=== PATIENT | female | born 1995 | race Caucasian/White ===

== ENCOUNTER 2018-11-02 14:59 | Outpatient (CLI) | payer MEDICAID ==
[~2018-11-02] VITALS: Ht 132.1 cm; Wt 62.3 kg
[2018-11-02 15:17] VITALS: Ht 132.1 cm; Wt 62.3 kg
[2018-11-02 15:18] VITALS: BP 108/68; PULSE 78; RESP 20
[2018-11-02] MEDS ORDERED: PREN-6 PO (15:21)
[2018-11-02] MEDS ORDERED: BETAMET NA PHOS/AC(6 MG/ML) 2 ML INJ SYG IM ONE (15:35)
--- NOTE | 2018-11-02 20:43 | PN ---
Triage Information Date/Time Reason for visit: Short cervix, present for betamethasone injection Weeks of Gestation 33 weeks and 2 days /Para G1 Diabetes: none Hypertention: none Objective Vital Signs Date Temp Pulse Resp B/P (MAP) Pulse Ox O2 O2 Flow FiO2 Time Delivery Rate 11/02/18 98.2 78 20 108/68 100 Room Air 15:18 (81) Heart Rate: 140's Contractions: None Results/Medications Imaging Results There is a single live intrauterine gestation. Cardiac activity is present with 140 beats per minute. There is a vertex presentation. The placenta is posterior. There is no evidence of placental abruption. There is an increased amount of amniotic fluid with an BLANK = 23.6 cm. Biophysical profile: movement 2/2 tone 2/2. breathing 2/2 BLANK 2/2 Total 05/18 RPTAT: AA . IMPRESSION: Normal biophysical profile. Polyhydramnios. . .Parvez Baird MD, MD Date Time Electronically viewed and signed by .Parvez Baird MD, MD on 11/02/2018 16:02 Disposition: Discharge Assessment/Plan 23 years old G1 at 33 weeks and 2 days with a DEBRA of 12/27/2018 with short cervix (1.6 cm) present for betamethasone injection. She states good movement. She denies nausea, vomiting, shortness of breath, chest pain, headache, visual changes, vaginal bleeding or LOF. heart rate is category 1. She has no uterine contraction. Ultrasound performed as noted above. She received 12 mg of betamethasone IM, will back tomorrow for receive a second dose. Sign and symptom of labor, preeclampsia, kick count discussed in detail with patient. She expressed understanding. All of her questions answered. I strongly recommend to have modified bedrest and avoid of sexual activity. She discharged home in stable condition with follow-up with her primary OB. OSMANY DUNLAP Nov 02, 2018 20:43
== END 2018-11-02 16:56 | disposition home or self-care (01) ==
LOC: L-D 14:59 → OBT 14:59
PROVIDERS: ATTEND Obstetrics & Gynecology
DX: O26.873 Cervical shortening, third trimester (principal); Z3A.33 33 weeks gestation of pregnancy
CPT/HCPCS: 76818; J0702; Z7500; G0463

== ENCOUNTER 2018-11-03 16:19 | Outpatient (CLI) | payer MEDICAID ==
[~2018-11-03] VITALS: Ht 154.9 cm; Wt 62.2 kg
[~2018-11-03 16:19] MED LIST: PREN-6 PO
[2018-11-03 16:33] VITALS: BP 113/75; PULSE 99; RESP 18; Ht 154.9 cm; Wt 62.2 kg
[2018-11-03] MEDS ORDERED: BETAMET NA PHOS/AC(6 MG/ML) 2 ML INJ SYG IM ONE (18:00)
--- NOTE | 2018-11-03 18:33 | PN ---
Triage Information Date/Time November 03, 2018 Reason for visit: Short cervix to receive the second dose of steroid Weeks of Gestation 33 weeks and 2 days /Para 1 para 0 Diabetes: none Hypertention: none Additional information 23-year-old with IUP at 33 weeks and 2 days with short cervix was seen yesterday and received first dose of steroid. she was then subsequently discharged in here today received a second dose of steroid. She denies any leaking of fluid, vaginal bleeding or decreased movement. Cervix was noted to be 1.6 cm. Objective Vital Signs Date Temp Pulse Resp B/P (MAP) Pulse Ox O2 O2 Flow FiO2 Time Delivery Rate 11/03/18 97.9 99 18 113/75 Room Air 16:33 (88) Exam GA: Alert and oriented x4 does not appear to be in any acute distress HEENT: Soft, gravid, size consistent with dates NST: Category 1 and appropriate for gestational age Some occasional irritability noted. Patient has not been feeling Cervical length: 1.9 cm which there is no change compared to prior. There is no evidence of funneling UA consistent with UTI Asymptomatic. Results/Medications Results 24 hrs Laboratory Tests Test 11/03/18 17:41 Urine Color YELLOW Urine Clarity SLIGHTLY CLOUDY A Urine pH 6.0 Urine Specific [place] 1.015 Urine Ketones 1+ H Urine Nitrite NEGATIVE Urine Bilirubin NEGATIVE Urine Urobilinogen 1+ H Urine Leukocyte Esterase 3+ H Urine Microscopic RBC 1 Urine Microscopic WBC 51 H Urine Squamous Epithelial Cells FEW Urine Hemoglobin NEGATIVE Urine Glucose NEGATIVE Urine Total Protein 1+ H Imaging Results Laboratory Tests Test 11/03/18 17:41 Urine Color YELLOW Urine Clarity SLIGHTLY CLOUDY Urine pH 6.0 Urine Specific [place] 1.015 Urine Ketones 1+ mg/dL Urine Nitrite NEGATIVE mg/dL Urine Bilirubin NEGATIVE mg/dL Urine Urobilinogen 1+ mg/dL Urine Leukocyte Esterase 3+ Gaby/ul Urine Microscopic RBC 1 /HPF Urine Microscopic WBC 51 /HPF Urine Squamous Epithelial Cells FEW /HPF Urine Hemoglobin NEGATIVE mg/dL Urine Glucose NEGATIVE mg/dL Urine Total Protein 1+ mg/dl PROCEDURE: US cervix CLINICAL INDICATION: A short cervix TECHNIQUE: Limited OB ultrasound was performed to evaluate the cervix COMPARISON: No prior studies are available for comparison. FINDINGS: There is a single live intrauterine . Normal cardiac activity is identified at a rate of 123 beats per minute. presentation is cephalic. Placenta is fundal grade 1. The cervix is closed with a length of 1.9 cm. No funneling of dilatation is identified. IMPRESSION: Cervix is closed with a length of 1.9 cm RPTAT: HH Disposition: Discharge Assessment/Plan IUP at 33 weeks and 2 days Short cervix History of labor no cervical change noted compared to prior exam No evidence of funneling Patient is asymptomatic Received second dose of steroid today Urine consistent with UTI. Asymptomatic. Treatment with Keflex 500 mg p.o. 4 times daily was given for 7 days I discussed with the patient about adequate hydration and follow-up within 48 hours after discharge from the hospital with primary OB office Strict labor precaution and kick counts and bedrest at home and pelvic rest discussed with the patient All questions were answered to patient's best satisfaction PENELOPE KIRKLAND MD Nov 03, 2018 18:33
--- NOTE | 2018-11-03 19:12 | TRIAGE ---
OB Triage Datetime Report Generated by CPN: 11/03/2018 19:11 Datetime: 11/03/2018 17:01 Labor Evaluation Frequency: none Monitor Mode: External Resting Tone [place]: Relaxed Heart Rate FHR Baseline Rate: 130 Monitor Mode: External US FHR Baseline Changes: No Baseline Change Variability: Moderate 6-25 bpm Accelerations: 15X15 Decelerations: None Category: Category I Datetime: 11/03/2018 16:41 Stage of : OB Triage Assessment Type: Triage Maternal Assessment Level of Consciousness: Fully Conscious DTR's/Clonus: DTRs 2+; No Clonus Headache: Denies Blurred Vision: No Respiratory Effort: Unlabored; Regular Rhythm; Equal Expansion Breath Sounds, Left: Clear and Equal Breath Sounds, Right: Clear and Equal Nausea/Vomiting: Denies RUQ Epigastric Pain: Denies Lower Extremities Edema: None Degree: None Upper Extremities Edema: None Degree: None Facial Edema: None Temperature Route: Oral Fall Risk Assessment History of Falling: (0) No Secondary Diagnosis: (0) No Ambulatory Aid: (0) Bedrest/Nurse Assist IV Therapy: (0) No Gait: (0) Normal/Bedrest/Immobile Mental Status: (0) Oriented to Own Ability Fall Score: 0 Fall Risk Score Definition: No Risk: No action required Labor Evaluation Frequency: none Monitor Mode: External Resting Tone [place]: Relaxed Heart Rate FHR Baseline Rate: 135 Monitor Mode: External US FHR Baseline Changes: No Baseline Change Variability: Moderate 6-25 bpm Accelerations: 15X15 Decelerations: None Category: Category I Pain Assessment Pain Scale: 0 Pain Presence: None/Denies Pain Type: N/A Datetime: 11/03/2018 16:40 Time of Arrival: 11/03/2018 16:16 EGA: 33.2 Arrived By: Ambulatory Arrived From: Home Chief Complaint: to receive second dose of celestone Movement: Present Contractions: Denies/Absent Rupture of Membranes: Denies Vaginal Bleeding: None Vaginal Discharge: Denies Recent Sexual Intercouse: Denies Abdominal Trauma: Not Applicable Patient Complaints: None Initial Plan: EFM, celestone second dose Datetime: 11/02/2018 16:41 Labor Evaluation Frequency: 2-5 Monitor Mode: External Duration (sec)2399: 50-60 Quality: Mild Pattern: Normal: <= 5 Contractions in 10 Minutes Resting Tone [place]: Relaxed Heart Rate FHR Baseline Rate: 135 Monitor Mode: External US Variability: Moderate 6-25 bpm Accelerations: 15X15 Decelerations: None Category: Category I Pain Presence: None/Denies Pain Type: N/A Datetime: 11/02/2018 16:07 Assessment Type: Triage Maternal Assessment Level of Consciousness: Fully Conscious DTR's/Clonus: DTRs 2+; No Clonus Headache: Denies Blurred Vision: No Respiratory Effort: Unlabored; Regular Rhythm; Equal Expansion Breath Sounds, Left: Clear and Equal Breath Sounds, Right: Clear and Equal Nausea/Vomiting: Denies RUQ Epigastric Pain: Denies Lower Extremities Edema: None Degree: None Upper Extremities Edema: None Degree: None Facial Edema: None Fall Risk Assessment History of Falling: (0) No Secondary Diagnosis: (0) No Ambulatory Aid: (0) Bedrest/Nurse Assist IV Therapy: (0) No Gait: (0) Normal/Bedrest/Immobile Mental Status: (0) Oriented to Own Ability Fall Score: 0 Fall Risk Score Definition: No Risk: No action required Datetime: 11/02/2018 16:02 Monitor Mode: External US Datetime: 11/02/2018 15:47 Heart Rate FHR Baseline Rate: 125 Monitor Mode: External US Variability: Moderate 6-25 bpm Accelerations: 15X15 Decelerations: None Category: Category I Comments: reactive nst Datetime: 11/02/2018 15:11 Arrived By: Ambulatory Arrived From: Home Chief Complaint: short cervix, for nst , beta injection Movement: Present Contractions: Denies/Absent Rupture of Membranes: Denies Vaginal Bleeding: None Vaginal Discharge: Denies Recent Sexual Intercouse: Denies Abdominal Trauma: Not Applicable Patient Complaints: None Time Provider Notified: 11/02/2018 15:17 Provider Notified: Hadadian Initial Plan: bpp, nst, bete injection
== END 2018-11-03 18:55 | disposition home or self-care (01) ==
LOC: OBT 16:19 → L-D 16:20 → OBT 18:55
PROVIDERS: ATTEND Obstetrics & Gynecology
DX: O26.873 Cervical shortening, third trimester (principal); Z3A.33 33 weeks gestation of pregnancy
CPT/HCPCS: 76817; 81001; J0702; Z7500; G0463

== ENCOUNTER 2018-12-22 09:10 | Inpatient (IN) | payer MEDICAID ==
[~2018-12-22] VITALS: Ht 152.4 cm; Wt 66.5 kg
[2018-12-22 09:22] VITALS: BP 119/80; PULSE 70; RESP 18; Ht 152.4 cm; Wt 66.5 kg
[2018-12-22] MEDS ORDERED: CARBOPROST 250 MCG INJ IM PRN (11:30)
[2018-12-22] MEDS ORDERED: OXYTOCIN 30 UNITS/LR 500 ML IV PRN (11:30)
[2018-12-22] MEDS ORDERED: METHYLERGONOVINE 0.2 MG INJ IM PRN (11:30)
[2018-12-22] MEDS ORDERED: LIDOCAINE 1% (MPF) 30 ML INJ INJ PRN (11:30)
[2018-12-22] MEDS ORDERED: IBUPROFEN 600 MG TAB PO PRN (11:30)
[2018-12-22] MEDS ORDERED: AMPICILLIN 2 GM/NS (PMX) 100 ML IV ONE (11:30)
[2018-12-22] MEDS ORDERED: BUTORPHANOL 2 MG INJ IV PRN (11:30)
[2018-12-22] MEDS ORDERED: MISOPROSTOL 200 MCG TAB PR PRN (11:30)
[2018-12-22] MEDS ORDERED: OXYTOCIN 30 UNITS/LR 500 ML IV SCH ×2 (11:30)
--- NOTE | 2018-12-22 11:50 | TRIAGE ---
OB Triage Datetime Report Generated by CPN: 12/22/2018 11:49 Datetime: 12/22/2018 11:03 Comments: TO FBC1 Datetime: 12/22/2018 10:56 Labor Evaluation Frequency: 2-5 Monitor Mode: External Duration (sec)2399: 60-120 Quality: Mild Pattern: Normal: <= 5 Contractions in 10 Minutes Resting Tone [place]: Relaxed Heart Rate FHR Baseline Rate: 140 Monitor Mode: External US Variability: Moderate 6-25 bpm Accelerations: 15X15 Decelerations: None Category: Category I Datetime: 12/22/2018 09:26 Assessment Type: Triage Maternal Assessment Level of Consciousness: Fully Conscious DTR's/Clonus: DTRs 2+; No Clonus Headache: Denies Blurred Vision: No Respiratory Effort: Unlabored; Regular Rhythm; Equal Expansion Breath Sounds, Left: Clear and Equal Breath Sounds, Right: Clear and Equal Nausea/Vomiting: Denies RUQ Epigastric Pain: Denies Lower Extremities Edema: None Degree: None Upper Extremities Edema: None Degree: None Facial Edema: None Fall Risk Assessment History of Falling: (0) No Secondary Diagnosis: (0) No Ambulatory Aid: (0) Bedrest/Nurse Assist IV Therapy: (0) No Gait: (0) Normal/Bedrest/Immobile Mental Status: (0) Oriented to Own Ability Fall Score: 0 Fall Risk Score Definition: No Risk: No action required Datetime: 12/22/2018 09:25 Time of Arrival: 12/22/2018 09:06 EGA: 40.5 Arrived By: Ambulatory Arrived From: Home Chief Complaint: ucs Movement: Present Contractions: Irregular Time Contractions Began: 12/21/2018 22:00 Contractions: 30 min Rupture of Membranes: Denies Vaginal Bleeding: None Vaginal Discharge: Denies Recent Sexual Intercouse: Denies Abdominal Trauma: Not Applicable Patient Complaints: Contractions Time Provider Notified: 12/22/2018 10:20 Provider Notified: HADADIAN Initial Plan: nst, sve Datetime: 12/22/2018 09:18 Vaginal Exam Dilatation (cms): 3.0 Effacement (%): 80 Station: -2 Exam By: kera Membrane Status: Intact Vaginal Bleeding: Normal Show Cervix, Consistency: Soft Cervix, Position: Midposition Presentation 'A': Cephalic Datetime: 11/03/2018 18:29 Labor Evaluation Frequency: x4 Monitor Mode: External Duration (sec)2399: 40-50 Quality: Mild Resting Tone [place]: Relaxed Contraction Comments: pt denies feeling UCs Heart Rate FHR Baseline Rate: 130 Monitor Mode: External US FHR Baseline Changes: Bradycardia Variability: Moderate 6-25 bpm Accelerations: 15X15 Decelerations: None Category: Category I Datetime: 11/03/2018 17:30 Labor Evaluation Frequency: x2 Monitor Mode: External Duration (sec)2399: 40-50 Quality: Mild Resting Tone [place]: Relaxed Heart Rate FHR Baseline Rate: 130 Monitor Mode: External US FHR Baseline Changes: No Baseline Change Variability: Moderate 6-25 bpm Accelerations: 15X15 Decelerations: None Category: Category I Datetime: 11/03/2018 16:41 Fall Score: 0 Fall Risk Score Definition: No Risk: No action required Datetime: 11/03/2018 16:40 EGA: 33.5 Time Provider Notified: 11/03/2018 17:31 Provider Notified: Dr Hadadian Datetime: 11/02/2018 16:07 Fall Score: 0 Fall Risk Score Definition: No Risk: No action required
[2018-12-22] MEDS: LACTATED RINGER'S 1,000 ML IV SCH ×2 (12:16→18:32)
--- NOTE | 2018-12-22 14:15 | HP ---
Date/Time of Note Date/Time of Note DATE: 12/22/18 TIME: 14:07 OB - History Hx of Present Free Text/Dictation 12/22/2018 : 1 Para: 0 Spontaneous : 0 Therapeutic : 0 Care: Other Other Concerns: 23 years old with IUP at 40 weeks and 5 days and care with [facility] Mand[place], presented with complaint of contractions and was noted to be in early labor. She was 3 cm dilated/ 80/-2. GBS Negative She was admitted for labor management. Antepartum course was otherwise non complicated. Past Family/Social History * Past Medical, Surgical, Family and Obstetric Histories reviewed from chart. Blood Type: O+ Rubella: immune RPR/VDRL: Negative GBS Status: Negative HBsAG: Negative OB Admission Exam Vital Signs Vital Signs Vital Signs Date Temp Pulse Resp B/P (MAP) Pulse Ox O2 O2 Flow FiO2 Time Delivery Rate 12/22/18 98.5 70 18 119/80 Room Air 09:22 (93) Physical Exam HEENT: WNL Lungs: Clear Abdomen: WNL Reflexes: Normal Cervical Dilatation: 3cm Effacement: 75% Station: -1 Membranes: Intact Heart Rate: 130's Accelerations: Accelerations Present Decelerations: No Decelerations Varibility: Moderate Contractions on Admission: < 5 Minutes Apart Intensity: Moderate Last 72 hours Lab Results CBC & BMP 12/22/18 12:10 OB Assessment/Plan Other Assessment: IUP at 40 weeks and 5 days Early labor GBS negative Admt to L&D labor augmentation Anticipate Plan of care discussed with the patient and patient verbalized understanding PENELOPE KIRKLAND MD Dec 22, 2018 14:15
[2018-12-22] MEDS: AMPICILLIN 1 GM/NS (PMX) 50 ML IV SCH ×2 (19:30→23:30)
[2018-12-23] MEDS: AMPICILLIN 1 GM/NS (PMX) 50 ML IV SCH ×5 (03:30→19:23)
[2018-12-23] MEDS: LACTATED RINGER'S 1,000 ML IV SCH ×3 (04:35→13:14)
[2018-12-23] MEDS ORDERED: METOPROLOL 5 MG INJ ONE (07:00)
[2018-12-23] MEDS ORDERED: ROPIVACAINE 0.2% 20 ML VIAL ONE (07:00)
--- NOTE | 2018-12-23 07:44 | PREAC ---
Date/Time of Note Date/Time of Note DATE: 12/23/18 TIME: 07:43 Anesthesia Eval and Record Evaluation Time Pre-Procedure Interview DATE: 12/23/18 TIME: 07:43 Age 23 Sex female NPO: 8 hrs Preoperative diagnosis labor pain Planned procedure labor epidural Past Medical History Past Medical History: None Surgery & Anesthesia Issues No known issue Meds Anticoagulation: No Beta Johnathan within 24 hr: No Reason Beta Johnathan not given: Pt. not on B-Johnathan Reported Medications Vits #93-Iron Fum-FA ( Formula) 1 Each Tablet, 1 TAB PO DAILY, TAB 11/02/18 Current Medications Lactated Ringer's 1,000 ml @ 125 mls/hr Q8H IV Last administered on 12/23/18at 04:35; Admin Dose 125 MLS/HR; Start 12/22/18 at 11:01 Ampicillin 50 ml @ 100 mls/hr Q4H IV ; Start 12/22/18 at 15:30 Butorphanol Tartrate (Stadol) 2 mg Q2H PRN IV .PAIN; Start 12/22/18 at 11:30 Lidocaine (Xylocaine 1% (Mpf)) 30 ml ONCE PRN INJ .EPISIOTOMY; Start 12/22/18 at 11:30 Oxytocin/Lactated Ringer's 500 ml @ 500 mls/hr ONCE POST IV ; Start 12/22/18 at 11:30 Oxytocin/Lactated Ringer's 500 ml @ 125 mls/hr POST IV ; Start 12/22/18 at 11:30 Ibuprofen (Motrin) 600 mg ONCE PRN PO .PAIN 1-5; Start 12/22/18 at 11:30 Oxytocin/Lactated Ringer's 500 ml @ 0 mls/hr ONCE PRN IV .VAGINAL BLEEDING; Start 12/22/18 at 11:30 Methylergonovine Maleate (Methergine) 0.2 mg ONCE PRN IM .VAGINAL BLEEDING; Start 12/22/18 at 11:30 Carboprost Tromethamine (Hemabate) 250 mcg ONCE PRN IM .VAGINAL BLEEDING; Start 12/22/18 at 11:30 Misoprostol (Cytotec) 1,000 mcg ONCE PRN SC .VAGINAL BLEEDING; Start 12/22/18 at 11:30 Oxytocin/Lactated Ringer's 500 ml @ 0 mls/hr FOR AUGMENTATION IV Last administered on 12/22/18at 17:08; Admin Dose 1 MLS/HR; Start 12/22/18 at 11:30 Meds reviewed: Yes Allergies Coded Allergies: No Known Drug Allergies (Verified Allergy, Unknown, 12/22/18) Allergies Reviewed: Yes Labs/Studies Labs Reviewed: Reviewed by anesthesiologist Result Diagram: 12/22/18 1210 Laboratory Tests 12/22/18 12:10 Blood Bank Test 12/22/18 12:10 Antibody Screen NEGATIVE Blood Type O POSITIVE Rh Immune Globulin Candidate NO test: Negative Pre-procedure Exam Last vitals Vital Signs Date Temp Pulse Resp B/P (MAP) Pulse Ox O2 O2 Flow FiO2 Time Delivery Rate 12/22/18 98.5 70 18 119/80 Room Air 09:22 (93) Airway: Adequate mouth opening, Adequate thyromental dist Mallampati: Mallampati III Teeth: Normal Lung: Normal Heart: Normal ASA Physical Status ASA physical status: 2 Emergency: None Planned Anesthetic Neuraxial: Epidural Planned Pain Management Epidural, Parenteral pain med Pre-operative Attestations Prior to commencing anesthesia and surgery, the patient was re-evaluated, there was verification of: *The patient's identity *The results of appropriate recent lab work and preoperative vital signs *The above evaluation not changing prior to induction *Anesthetic plan, risk benefits, alternative and complications discussed with pa tient/family; questions answered; patient/family understands, accepts and wishes to proceed. CELESTE RAMOS MD Dec 23, 2018 07:44
[2018-12-23] MEDS ORDERED: FENTAnyl 2MCG/ML-ROPIV 0.2% 100 ML ONE (07:49)
--- NOTE | 2018-12-23 07:49 | PAC ---
Date/Time of Note Date/Time of Note DATE: 12/23/18 TIME: 07:48 Post-Anesthesia Notes Post-Anesthesia Note Last documented vital signs Vital Signs Date Temp Pulse Resp B/P (MAP) Pulse Ox O2 O2 Flow FiO2 Time Delivery Rate 12/22/18 98.5 70 18 119/80 Room Air 09:22 (93) Activity: WNL Respiratory function: WNL Cardiovascular function: WNL Mental status: Baseline Pain reasonably controlled: Yes Hydration appropriate: Yes Nausea/Vomiting absent: Yes CELESTE RAMOS MD Dec 23, 2018 07:48
[2018-12-23] MEDS ORDERED: KETOROLAC 30 MG INJ IV PRN ×2 (08:00→21:30)
[2018-12-23] MEDS ORDERED: ZOLPIDEM 5 MG TAB PO PRN ×3 (08:00→21:30)
[2018-12-23] MEDS ORDERED: HYDROmorphONE 0.5 MG/0.5 ML SYG IV PRN ×4 (08:00→21:30)
[2018-12-23] MEDS ORDERED: NALOXONE (0.4 MG/ML) INJ IV PRN ×2 (08:00→21:30)
[2018-12-23] MEDS ORDERED: FENTAnyl 2MCG/ML-ROPIV 0.2% 100 ML BAG EPI SCH (08:00)
[2018-12-23] MEDS ORDERED: ONDANSETRON 4 MG INJ IV PRN ×3 (08:00→21:30)
[2018-12-23] MEDS ORDERED: DIPHENHYDRAMINE 50 MG INJ IV PRN ×3 (08:00→21:30)
[2018-12-23] MEDS ORDERED: DEXTROSE 5%-LR 1,000 ML IV SCH (12:28)
[2018-12-23] MEDS ORDERED: AMPICILLIN 2 GM/NS (PMX) 100 ML ONE (12:42)
[2018-12-23] MEDS ORDERED: AMPICILLIN 2 GM/NS (PMX) 100 ML IV ONE (13:00)
[2018-12-23] MEDS ORDERED: ONDANSETRON 4 MG INJ IV STA (14:57)
[2018-12-23] MEDS ORDERED: METOCLOPRAMIDE 10 MG INJ ONE (14:59)
[2018-12-23] MEDS ORDERED: FAMOTIDINE 20 MG INJ ONE (14:59)
[2018-12-23] MEDS ORDERED: CEFAZOLIN 2 GM/50 ML (PMX) 50 ML IVPB SCH ×2 (15:00→22:00)
[2018-12-23] MEDS ORDERED: METOCLOPRAMIDE 10 MG INJ IV ONE (15:00)
[2018-12-23] MEDS ORDERED: OXYTOCIN 30 UNITS/LR 500 ML IV SCH (15:00)
[2018-12-23] MEDS ORDERED: FAMOTIDINE 20 MG INJ IV ONE (15:00)
[2018-12-23] MEDS ORDERED: OXYTOCIN 10 UNIT INJ ONE (15:13)
[2018-12-23] MEDS ORDERED: morphine SULFATE/PF (10 MG/10 ML) INJ ONE (15:16)
[2018-12-23] MEDS ORDERED: LIDOCAINE 1.5%/EPI MPF (SDV) 30 ML VIAL ONE (15:19)
[2018-12-23] MEDS ORDERED: MIDAZOLAM 1 MG/ML 2 ML INJ ONE (15:44)
[2018-12-23] MEDS ORDERED: FENTAnyl 50 MCG/ML VIAL ONE (15:45)
--- NOTE | 2018-12-23 16:32 | QN ---
Documentation Comment 22y.o primigravida at 40w5d was admitted in early labor 0n 12/22/18 af ternogabriella. labor was augmented with pitocin cervical dilatation reache to 8cm ,SROM this pm showed thin meconium stained fluid tracing CAT II Re exma still same after more than hr primary c/s was chosen to be mode of delivery informed consent was obtained in usual fashion. GRICELDA LOPES MD Dec 23, 2018 16:32
[2018-12-23] MEDS: OXYTOCIN 30 UNITS/LR 500 ML IV SCH ×2 (16:36→18:37)
--- NOTE | 2018-12-23 16:39 | OPPN ---
Date/Time of Note Date/Time of Note DATE: 12/23/18 TIME: 16:33 Operative Report Planned Procedure Free Text/Dictation while preparing primary c/s FHR went down to 50's imediately taken to OR Procedure date Dec 23, 2018 Procedure(s) primary LTCS Performed by see signature line Plastering Contractor: CARLIE MALOENY MD 2nd Plastering Contractor none Anesthesiologist: CELESTE RAMOS MD Pre-procedure diagnosis iup 40W6D CAT III [id number] Anesthesia Type: Xuhae2y epidural Post-Procedure Post-procedure diagnosis delivered normal female with 8/8 thick mec stained amniotic fluid Findings Live Baby [f, Apgars [8] and 8[], weight [6lb3oz], position [LOT], [vx presentation [ tight nuchal cord x2 strangualting]cord. Estimated Blood Loss: 500 - 600 mls Specimen(s) placenta Grafts/Implant(s) none Complication(s) none GRICELDA LOPES MD Dec 23, 2018 16:39
--- NOTE | 2018-12-23 17:22 | OPR ---
DATE OF OPERATION: 12/23/2018 PREOPERATIVE DIAGNOSIS: 40 weeks 6 days, category 3. POSTOPERATIVE DIAGNOSIS: 40 weeks 6 days, category 3, delivered normal female with 8 and 8 with the thick meconium amniotic fluid with the tight twice nuchal cord strangulating t he baby. ANESTHESIA: Epidural. ANESTHESIOLOGIST: Dr. Xiong. SURGEON: Maya Eelna M.D. MANAGER CALL: ____ who is an RN to start aid and then later Dr. Breen joined. ESTIMATED BLOOD LOSS: Approximately 600 mL. PROCEDURE: While we are waiting for preparing the patient for primary section for category 2, the heartbeat went down to 50s profound and was not recovering and the patient was taken to the OR immediately and the abdominal wall was stained with Betadine solution and the emergency sec tion was started after the epidural was boostered. A transverse incision was made above this pubic r ami. Incision was carried down and the fascia was incised. The fascial flap was created and the rec tus muscle split in midline and peritoneal cavity was entered. Uterus was transversely incised above the uterovesical reflection and reached the amniotic membrane, ruptured. Thick meconium amniotic fl uid noted and the normal female was delivered from [facility] and the mouth and nose were cleaned and cord was milked toward the fetus and cut and handed to the respiratory care personnel prior to the b isabella was born, nose and mouth was suctioned. The patient was handed to the staff who was available fo r care. The cord blood was obtained. Placenta was removed manually. Cavity was completely explored after uterus was exteriorized. Membrane was stained meconium, which was removed thoroughly, and [place] abril was atonic and Methergine 0.2 mg was given and the uterine incision was closed using #1 chromic c atgut in continuous manner, second layer using 0 chromic catgut in continuous manner, including the u terine serosa. No bleeder was noted. Uterus was relocated in abdominal cavity. Abdominal cavity wa s thoroughly irrigated with water and the uterine incisional site was rechecked, which was intact and a piece of Surgicel was laid. The sponge count taken which was correct. The parietal peritoneum wa s closed using 0 chromic catgut. Muscle closed with 0 chromic catgut. There was a bleeder on the mu scle, which was controlled separately with 0 chromic catgut. A piece of Surgicel laid on the uterine muscle. The fascia closed with #1 Vicryl in continuous manner in 2 segments. Subcutaneous tissue i rrigated. This layer was approximated with a 2-0 plain in continuous manner after the adequate hemos tasis was secured. Skin closed with a 3-0 Monocryl in subcuticular manner. Steri-Strip applied. A pressure dressing applied. Estimated blood loss was 600 mL. Urine was clear and more than 200 mL. The patient withstood the procedure well and was sent to the recovery room in stable condition. Dictated By: MAYA GUTIERREZ/CEASAR Conf#: [id number] DID#: [id number]
[2018-12-23] MEDS: CLINDAMYCIN 600 MG/D5W (PMX) 50 ML IVPB SCH (18:35)
[2018-12-23] MEDS ORDERED: LACTATED RINGER'S 1,000 ML IV SCH (19:24)
[2018-12-23] MEDS ORDERED: METHYLERGONOVINE 0.2 MG INJ IM PRN (19:30)
[2018-12-23] MEDS ORDERED: OXYTOCIN 30 UNITS/LR 500 ML IV PRN (19:30)
[2018-12-23] MEDS ORDERED: MISOPROSTOL 200 MCG TAB PR PRN (19:30)
[2018-12-23] MEDS ORDERED: LANOLIN HPA 1 PKT TOP PRN (19:30)
[2018-12-23] MEDS ORDERED: OXYCODONE/ACETAMINOPHEN (5/325) TAB PO PRN ×2 (19:30)
[2018-12-23] MEDS ORDERED: CARBOPROST 250 MCG INJ IM PRN (19:30)
[2018-12-23] MEDS: SENNA/DOCUSATE NA (8.6MG/50MG) TAB PO SCH (21:00)
[2018-12-23 22:16] VITALS: BP 109/62; PULSE 100; RESP 19
[2018-12-24] VITALS: BP 102/62; PULSE 107; RESP 19
[2018-12-24] MEDS: CLINDAMYCIN 600 MG/D5W (PMX) 50 ML IVPB SCH ×3 (00:08→12:16)
[2018-12-24] MEDS: LACTATED RINGER'S 1,000 ML IV SCH ×3 (00:08→16:00)
[2018-12-24 04:00] VITALS: BP 100/58; PULSE 108; RESP 18
[2018-12-24] MEDS: IBUPROFEN 600 MG TAB PO SCH ×5 (06:00→23:36)
[2018-12-24 08:15] VITALS: BP 108/73; PULSE 103; RESP 17
[2018-12-24] MEDS: SENNA/DOCUSATE NA (8.6MG/50MG) TAB PO SCH ×2 (09:38→20:45)
--- NOTE | 2018-12-24 11:11 | PN ---
Date/Time of Note Date/Time of Note DATE: 12/24/18 TIME: 11:09 OB Subjective Subjective Subjective Pumping breast. Has not been out of the bed yet. Flores draining clear yellow urine. Patient reports pain controlled with p.o. pain medication. Has not been ambulating or out of the bed yet. Vaginal bleeding decreased. Breast-feeding. OB Objective Objective Objective General appearance: Alert and oriented x4 does not appear to be in acute distress Breast: No evidence of mastitis or engorgement of patient Abdomen: Soft appropriate tenderness in the incision. Dressing clean dry and intact Normal bowel sounds audible Extremities: No calf tenderness, no click no edema no cord palpable, SCDs are on Flores draining clear yellow urine Lungs: Clear to auscultation bilaterally CV: RRR CBC & BMP 12/22/18 12:10 12/24/18 07:00 OB Assessment/Plan Other Assessment: Status post section for nonreassuring heart tracing Postop day #1 Still less than 24 hours post op Doing well Anemia, postop, asymptomatic Continue routine postop care Remove dressing after 24 hours postop DC Flores after 24 hours postop Start ambulation after Flores removed PENELOPE KIRKLAND MD Dec 24, 2018 11:11
[2018-12-24 12:00] VITALS: BP 102/72; PULSE 86; RESP 16
[2018-12-24 15:30] VITALS: BP 95/67; PULSE 84; RESP 16
[2018-12-24 20:30] VITALS: BP 126/84; PULSE 101; RESP 19
[2018-12-25 04:00] VITALS: BP 102/68; PULSE 71; RESP 18
[2018-12-25] MEDS: IBUPROFEN 600 MG TAB PO SCH ×3 (06:14→18:55)
[2018-12-25] MEDS: LACTATED RINGER'S 1,000 ML IV SCH ×2 (08:00)
[2018-12-25 08:45] VITALS: BP 101/59; PULSE 62; RESP 16
[2018-12-25] MEDS: SENNA/DOCUSATE NA (8.6MG/50MG) TAB PO SCH ×2 (09:05→21:00)
--- NOTE | 2018-12-25 12:53 | PN ---
Date/Time of Note Date/Time of Note DATE: 12/25/18 TIME: 12:51 OB Subjective Subjective Subjective POD#2 Patient is doing well. She denies nausea, vomiting, shortness of breath, chest pain, headache. She has been ambulating without difficulty, tolerating regular diet. Pain is well controlled on current medications OB Objective Objective Objective Vital Signs Date Temp Pulse Resp B/P (MAP) Pulse Ox O2 O2 Flow FiO2 Time Delivery Rate 12/25/18 98.0 62 16 101/59 Room Air 08:45 (73) 12/24/18 98 15:30 General: AAO X 3, comfortable, NAD, appropriate mood and affect. ABD: +BS. Soft, non-tender. Uterus 2 cm below umbilicus Incision: Clear, dry, intact. No erythema, drainage or induration. Flank: No CVA tenderness (B/L) LE: Mild edema. No clubbing, cyanosis, thigh or calf tenderness (B/L). Homans 'sign is negative OB Assessment/Plan Other plan: 23 years old 1 para 1001 s/p delivery at 40 weeks and 6 days. POD#2 - AF, VSS - Contraception methods with R/B/A/FR discussed - Continue care - Discharge home tomorrow - Rx and instruction given - Follow up in one and 6 weeks OSMANY DUNLAP Dec 25, 2018 12:53
--- NOTE | 2018-12-25 12:55 | DS ---
Date/Time of Note Date/Time of Note DATE: 12/25/18 TIME: 12:53 Obstetrical Discharge Record Final Diagnosis Final Diagnosis: Term delivered Other Final Diagnosis 23 years old 1 para 1001 s/p delivery at 40 weeks and 6 days. POD#2. course was unremarkable. She is ambulating and tolerating regular diet. She is voiding without difficulty. Pain is controlled on current medication. - AF, VSS - Contraception methods with R/B/A/FR discussed - Continue care - Discharge home tomorrow - Rx and instruction given - Follow up in one and 6 weeks Section Section: Primary Primary Indication Nonreassuring heart rate Condition on Discharge Physical Assessment Last Vitals: Vital Signs Date Temp Pulse Resp B/P (MAP) Pulse Ox O2 O2 Flow FiO2 Time Delivery Rate 12/25/18 98.0 62 16 101/59 Room Air 08:45 (73) 12/24/18 98 15:30 Voiding: Yes Bowel Movement: Yes Breast: Soft, non-tender Fundus: Firm Calf Tenderness: No Patient Condition: Stable OSMANY DUNLAP Dec 25, 2018 12:55
[2018-12-25 15:27] VITALS: BP 116/74; PULSE 66; RESP 16
[2018-12-25 20:10] VITALS: BP 128/78; RESP 18
[2018-12-26 05:00] VITALS: PULSE 62; RESP 18
[2018-12-26] MEDS: IBUPROFEN 600 MG TAB PO SCH ×3 (06:00→12:16)
[2018-12-26 08:00] VITALS: BP 119/75; PULSE 51; RESP 18
[2018-12-26] MEDS ORDERED: DIPHTH/TET/ACEL PERTUSS (ADULT) 0.5 ML VIAL IM* ONE (09:00)
[2018-12-26] MEDS: SENNA/DOCUSATE NA (8.6MG/50MG) TAB PO SCH (09:10)
--- NOTE | 2018-12-26 11:59 | QN ---
Documentation Comment POD#3 is stable afebrile tolerates diet No VB +BM +Voids VS stable Gen AND Abd soft NT ND Incision is intact Genitalia No blood at perineum --->Discharge plan ELHAM POOL M.D. Dec 26, 2018 11:59
== END 2018-12-26 13:05 | disposition home or self-care (01) | DRG 788 ==
LOC: OBT 09:10 → L-D 09:11 → OBT 10:52 → L-D 10:52 → PP1 12-23 22:01
PROVIDERS: ADMIT Obstetrics & Gynecology; ATTEND Obstetrics & Gynecology
PROC: 10D00Z1 Extraction of Products of Conception, Low, Open Approach (ICD-10-PCS; principal; 2018-12-23)
DX: O76 Abnormality in fetal heart rate and rhythm complicating labor and delivery (principal); O69.1XX0 Labor and delivery complicated by cord around neck, with compression, not applicable or unspecified; O77.0 Labor and delivery complicated by meconium in amniotic fluid; Z3A.40 40 weeks gestation of pregnancy; Z37.0 Single live birth; O75.89 Other specified complications of labor and delivery
CPT/HCPCS: 76815; 76818; 85025; 85610; 85730; 86592; 86850; 86900; 86901; 87070; 87340; 88307; 99464; G0463; J0290; J0690; J1885; J2210; J2250; J2274; J2405; J2590; J2765; J2795; J3010; J7120; J7121